=== PATIENT | female | born 1940 | race Caucasian/White ===

== ENCOUNTER 2024-09-17 18:09 | Emergency (ER) | payer MEDICARE, SELFPAY ==
[2024-09-17 18:10] VITALS: BP 143/69; PULSE 72; RESP 16; TEMP 36.2; O2SAT 97
--- NOTE | 2024-09-17 18:22 | RAD_ITS ---
PROCEDURE: FOOT MIN 3 VIEWS REASON FOR EXAM: No known injury. Pain plantar aspect of the foot. TECHNIQUE: Three view(s) of right foot. COMPARISON: None. FINDINGS: No acute fractures, dislocations, or subluxations. Severe bunion deformity. Degenerative changes involving the tarsometatarsal joints. Large dorsal and plantar calcaneal spurs. Soft tissues unremarkable. RAD/Foot min 3 Views IMPRESSION: 1. Large calcaneal spurs. 2. 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 3. Severe bunion deformity. 4. No acute osseous abnormalities are demonstrated. Reading Location: [facility]
--- NOTE | 2024-09-17 20:33 | EDS_ITS ---
HPI History of Present Illness HPI Narrative: Patient presents with right foot pain that became worse today. Patient denies any trauma or injury. Patient describes the pain as sharp, aching, and throbbing. Patient states it is worse when it is in a dependent position. Patient states it is often worse with walking. Patient states nothing seems to help with it. Patient states she has tramadol at home and has been taking 2 tablets every 6 hours with no improvement. Patient denies any paresthesias or weakness. Patient states her pain radiates to the lateral aspect of her right thigh. Patient denies any calf pain or swelling. Chief Complaint: Lower Extremity Injury Informant: patient Onset/Context/Timing Onset: Days Context: Gradual Onset Timing: Continuous Quality of Pain: Sharp, Aching and Throbbing Location: Right foot Worsened by: Dependent position, weightbearing Relieved by: Nothing Associated Symptoms Associated Symptoms: Negative for Parasthesia, Weakness or Loss of Funtion PFSH [facility] Medical History (Updated 09/17/24 @ 20:[address] Román Mehta, ) Hypertension Asthma Home Medications ?Medication ?Instructions ?Recorded ?Last Taken ?Type hydrocodone-acetaminophen 5-325mg 1 tab PO Q6H PRN PRN Pain 3 days 09/17/24 Unknown Rx 5mg-325mg #10 TABLETS Allergy/AdvReac Type Severity Reaction Status Date / Time lavender (Lavandula Allergy Intermediate Hives Verified 09/17/24 18:10 angustifolia) Penicillins (PCN) Allergy Intermediate Hives Verified 09/17/24 18:10 Sulfa (Sulfonamide Allergy Unknown NEEDS Verified 09/17/24 18:10 Antibiotics) FOLLOW-UP Surgical History (Updated 09/17/24 @ 20:[address] Román Mehta, ) History of lumbar fusion History of surgery on right wrist Hx of hysterectomy Social History Smoking Status: Never smoker ROS ROS ED Constitutional Constitutional ED: Reports chills and subjective; Denies fever(s) Eyes Eyes: Denies blurry vision or change in vision ENT ENT ED: Denies rhinorrhea or sore throat Cardiovascular Cardiovascular: Denies chest pain or palpitations Respiratory/Chest Respiratory/Chest: Denies cough or dyspnea Gastrointestinal Gastrointestinal: Denies nausea or vomiting Genitourinary Genitourinary ED: Denies dysuria or hematuria Musculoskeletal Musculoskeletal: Reports neck pain; Denies back pain Integumentary Denies abscess or rash Neurologic Neurologic: Reports headache(s); Denies weakness Allergic/Immunologic Allergic/Immunologic ED: Denies mouth swelling or urticaria EXAM Physical Exam Const Vital Signs: 09/17/24 18:10 Temperature 97.2 F L Temperature Source Temporal Pulse Rate 72 Respiratory Rate 16 Blood Pressure 143/69 H Blood Pressure Mean 93 Pulse Ox 97 Oxygen Delivery Method Room Air Positive well nourished and well developed General Appearance ED: well developed and NAD HEENT Reports moist mucous membranes normocephalic and atraumatic Neck full ROM and supple Extremity Extremity Narrative: There is tenderness and edema over the metatarsals of the right foot. There is no ecchymosis noted. There is no deformity noted. Range of motion was slightly limited in all motions of the right foot secondary to pain. Strength is 5/5 bilaterally in the lower extremities. There are no sensory deficits noted. Pedal pulses are equal bilaterally. There is no calf tenderness noted. Neuro oriented x3, CN's II-XII intact bilaterally, moves all extremities and no sensory deficits noted Sensorium / Orientation: alert Motor Exam: strength 5/5 throughout Psych mental status grossly normal MDM MDM MDM Narrative Medical decision making narrative: Diagnosis includes fracture, degenerative arthritis, and contusion. X-rays of the right foot will be obtained to assess for fracture. Radiography Diagnostic Testing: Clinical Impression(s) from Imaging Studies Foot X-Ray 09/17/24 18:22 IMPRESSION: 1. Large calcaneal spurs. 2. 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 3. Severe bunion deformity. 4. No acute osseous abnormalities are demonstrated. Reading Location: [facility] X-rays of the right foot were obtained. There are 3 views. On my independent interpretation, there are degenerative changes noted. There is no acute fracture. There is a bunion deformity noted. There are calcaneal spurs noted. Radiologist also interpreted the x-rays and agrees. Treatment and Re-Evaluation Narrative: Patient was advised of her findings. Patient was advised that this is most likely degenerative arthritis. Patient was given a boot orthosis. Patient was instructed to ice and elevate the right foot. Patient was given a prescription for a short course of [place]. Patient was instructed to follow-up with her primary care physician in 5 to 7 days. Patient understood and was agreeable with the plan. All questions were answered. Discharge Plan Triage Chief Complaint: Lower Extremity Injury ED Provider: Román Mehta Dx/Rx/DC Orders Clinical Impression: Acute pain of right foot, Degenerative arthritis of foot Instructions: ED Osteoarthritis Prescriptions: New hydrocodone-acetaminophen 5-325 mg tablet 1 tab PO Q6H PRN PRN (Reason: Pain) 3 Days Qty: 10 0RF Primary Care Provider: Joe Robb Referrals: Joe Robb MD [Primary Care Provider] - 5-7 Days Print Language: Tajik Disposition Disposition: Home, Self Care
[2024-09-17] MEDS: HYDROcodone Bitartrate/Apap 5/325 Tablet PO (21:09)
[2024-09-17 21:16] VITALS: BP 134/72; PULSE 71; RESP 18; TEMP 36.3; O2SAT 99
== END 2024-09-17 21:17 | disposition home or self-care (01) ==
PROVIDERS: Emergency Provider Emergency Medicine; PCP Family Medicine; Visit Provider Emergency Medicine
DX: M19.071 Primary osteoarthritis, right ankle and foot (principal)
CPT/HCPCS: 73630; 99283